=== PATIENT | female | born 1980 | race Caucasian/White ===

== ENCOUNTER 2023-09-08 16:49 | Emergency (ER) | payer MEDICAID ==
[~2023-09-08] VITALS: Ht 167.6 cm; Wt 103.0 kg
[2023-09-08 16:56] VITALS: O2SAT 99
[2023-09-08] MEDS: BACITRACIN ZINC OINT UDPKT TOP ONE (17:45)
[2023-09-08] MEDS: LIDOCAINE HCL/PF 1% 10 MG/ML 5ML VIAL INFIL ONE (17:45)
[2023-09-08] MEDS: IBUPROFEN 600MG TABLET PO ONE (17:45)
[2023-09-08] MEDS: TETANUS, DIPHTHERIA, PERTUSSIS VAC/PF 0.5ML (>10YR OLD) IM ONE (19:30)
[2023-09-08] MEDS ORDERED: IBUP-2029 MT (19:31)
[2023-09-08] MEDS ORDERED: BO1 TP (19:31)
[2023-09-08 20:34] VITALS: BP 139/82; PULSE 75; RESP 18; TEMP 37.11408; O2SAT 98
== END 2023-09-08 20:36 | disposition home or self-care (01) ==
LOC: ER 16:49
DX: S61.012A Laceration without foreign body of left thumb without damage to nail, initial encounter (principal); W26.8XXA Contact with other sharp object(s), not elsewhere classified, initial encounter; Y93.89 Activity, other specified; Y92.89 Other specified places as the place of occurrence of the external cause; Y99.8 Other external cause status
CPT/HCPCS: 90715; 12002; 90471; 99283; J3490; Z7610 ×2

== ENCOUNTER 2023-09-11 09:15 | Emergency (ER) | payer MEDICAID ==
[~2023-09-11] VITALS: Ht 167.6 cm; Wt 102.5 kg
[~2023-09-11 09:15] MED LIST: BO1 TP; IBUP-2029 MT
[2023-09-11 09:25] VITALS: BP 152/76; PULSE 63; RESP 18; TEMP 98.9; O2SAT 95
[2023-09-11] MEDS ORDERED: BO1 TP (09:36)
== END 2023-09-11 09:42 | disposition home or self-care (01) ==
LOC: ER 09:15
DX: S61.011D Laceration without foreign body of right thumb without damage to nail, subsequent encounter (principal); Z88.0 Allergy status to penicillin; X58.XXXD Exposure to other specified factors, subsequent encounter
CPT/HCPCS: 99282

== ENCOUNTER 2023-09-16 01:10 | Emergency (ER) | payer MEDICAID ==
[~2023-09-16] VITALS: Ht 170.2 cm; Wt 102.0 kg
[2023-09-16 01:19] VITALS: O2SAT 98
[2023-09-16] MEDS ORDERED: CEPH500T MT (07:30)
[2023-09-16 07:48] VITALS: BP 123/78; PULSE 70; RESP 16; TEMP 98.4
== END 2023-09-16 08:45 | disposition home or self-care (01) ==
LOC: ER 01:30
DX: S61.011D Laceration without foreign body of right thumb without damage to nail, subsequent encounter (principal); Z88.0 Allergy status to penicillin; Z48.02 Encounter for removal of sutures; X58.XXXD Exposure to other specified factors, subsequent encounter
CPT/HCPCS: 99283; Z7610